=== PATIENT | female | born 1940 | race Caucasian/White ===

== ENCOUNTER → 2018-07-28 | Outpatient (CLI) | payer OTHER, BC ==
--- NOTE | ~2018-07-28 | P ---
[address] [place] [address] PROCEDURE REPORT Name: DEB SAAVEDRA Room #: [facility].#: [id number] Admission: 07/28/18 Attend Phys: Marky Diaz MD Discharge: Date of : 40 Report #: [id number] THIS REPORT FOR: //name// CC: MICHAEL Gary Cristela PROCEDURE: Implantable loop recorder insertion. PREOPERATIVE DIAGNOSIS: Palpitations. POSTOPERATIVE DIAGNOSIS: Palpitations. DESCRIPTION OF PROCEDURE: The patient underwent informed consent. She was prepped and draped in a sterile fashion. I then injected lidocaine at the incision site. A small incision was made. The device was injected under the skin and 1 single suture was placed at the incision site. There was no significant bleeding or complications. The implanted device was a [employer], model #[id number], serial #[id number]. The device was programmed to its normal settings. CONCLUSIONS: Successful implantable loop recorder insertion. By: [id number] Marky Diaz MD /nt
[2018-07-28 13:04] VITALS: BP 140/64
== END | disposition home or self-care (01) ==
LOC: CATH 10:55
DX: R00.2 Palpitations (principal)

== ENCOUNTER → 2020-01-08 | Outpatient (CLI) | payer OTHER, BC | LOC: SJCVC 10:04 | DX: I44.0 Atrioventricular block, first degree (principal); I47.1 Supraventricular tachycardia ==

== ENCOUNTER → 2020-06-24 | Outpatient (CLI) | payer OTHER, BC | LOC: SJCVC 13:13 | PROVIDERS: ATTEND Internal Medicine Cardiovascular Disease | DX: I44.0 Atrioventricular block, first degree (principal); R94.31 Abnormal electrocardiogram [ECG] [EKG]; I48.0 Paroxysmal atrial fibrillation; I47.1 Supraventricular tachycardia; I10 Essential (primary) hypertension; E03.9 Hypothyroidism, unspecified; Z79.899 Other long term (current) drug therapy; Z87.891 Personal history of nicotine dependence ==